=== PATIENT | female | born 1990 | race Caucasian/White ===

== ENCOUNTER 2017-07-27 11:04 | Emergency (ER) | payer OTHER ==
[2017-07-27] MEDS ORDERED: ACETAMINOPHEN 325 MG TABLET PO ONE (12:47)
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
[2017-07-27 13:46] VITALS: BP 119/80
[2017-07-27] MEDS ORDERED: ONDANSETRON 4 MG TAB.RAPDIS PO ONE (15:17)
== END 2017-07-27 13:34 | disposition home or self-care (01) ==
LOC: ER 11:04
DX: S49.91XA Unspecified injury of right shoulder and upper arm, initial encounter (principal); M25.511 Pain in right shoulder; Y08.89XA Assault by other specified means, initial encounter; Y99.0 Civilian activity done for income or pay; G43.109 Migraine with aura, not intractable, without status migrainosus; H53.8 Other visual disturbances
CPT/HCPCS: 99283